=== PATIENT | female | born 1965 | race African-American/Black ===

== ENCOUNTER 2020-07-13 17:38 | Emergency (ER) | payer MEDICAID, OTHER ==
[~2020-07-13] VITALS: Ht 157.5 cm; Wt 51.0 kg
[2020-07-13] MEDS ORDERED: ONDANSETRON HCL 4MG/2ML INJ IV STA (19:08)
[2020-07-13] MEDS ORDERED: SODIUM CHLORIDE 0.9% 1,000 ML IV ONE (19:08)
[2020-07-13 22:39] LABS: BASOPHILS % 0.7 % (0.0-2.0); EOSINOPHILS % 0.1 % (0.0-5.0); HEMATOCRIT. 39.6 % (36.0-48.0); HEMOGLOBIN. 14.1 g/dL (12.0-16.0); LYMPHOCYTES % 16.3 % (20.0-50.0); MEAN CORPUSCULAR HEMOGLOBIN 32.7 pg (28.0-32.0); MEAN CORPUSCULAR VOLUME 92.2 fL (81.0-99.0); MONOCYTES % 4.5 % (2.0-8.0); NEUTROPHILS % 78.4 % (40.0-76.0); PLATELET 248 x1000/uL (130-400); RED CELL DISTRIBUTION WIDTH 16.4 % (11.6-14.6)
[2020-07-13 22:46] LABS: CHLORIDE 93 mEq/L (98-107)
[2020-07-13] MEDS ORDERED: INSULIN LISPRO 100 UNITS/ML SUBCUT ONE (23:45)
[2020-07-13] MEDS ORDERED: POTASSIUM CHLORIDE 20MEQ TABLET SR PO ONE (23:45)
[2020-07-14] MEDS ORDERED: ACETAMINOPHEN 650MG/20.3ML UDC PO ONE (00:30)
[2020-07-14 00:40] VITALS: BP 116/68
== END 2020-07-14 00:41 | disposition home or self-care (01) ==
LOC: ER 18:13
DX: K52.9 Noninfective gastroenteritis and colitis, unspecified (principal); E11.9 Type 2 diabetes mellitus without complications; I10 Essential (primary) hypertension; F17.290 Nicotine dependence, other tobacco product, uncomplicated
CPT/HCPCS: 36415; 80048; 82962; 85025; 87635; 93005; 96361; 96372; 96374; 99284; C9803; J1815; J2405; J7030